=== PATIENT | male | born 1935 | race Caucasian/White ===

== ENCOUNTER 2021-01-11 22:18 | Emergency (ER) | payer OTHER ==
[~2021-01-11] VITALS: Ht 167.6 cm; Wt 72.6 kg
[2021-01-11 22:22] VITALS: BP_SYST 139
[2021-01-11] MEDS ORDERED: ceFAZolin SODIUM 1 GM VIAL IM ONE (22:30)
[2021-01-11] MEDS ORDERED: ONDANSETRON 4 MG ODT TAB PO ONE (22:30)
[2021-01-11] MEDS ORDERED: MORPHINE 4 MG INJ. 4 MG/ML VIAL IM ONE (22:30)
[2021-01-11] MEDS ORDERED: DIPH-TET-PERTUS Vaccine 0.5 ML VIAL (ADACEL) I.M. ONE (22:30)
[2021-01-11] MEDS ORDERED: MORPHINE 4 MG INJ. 4 MG/ML VIAL ONE (22:34)
[2021-01-11] MEDS ORDERED: ONDANSETRON HCL 4 MG/2 ML VIAL ONE (22:34)
[2021-01-11] MEDS ORDERED: ceFAZolin SODIUM 1 GM VIAL ONE (22:36)
[2021-01-11] MEDS ORDERED: LIDOCAINE 1%, 20 ML MDV 0 ML ONE (22:37)
[2021-01-11] MEDS ORDERED: ceFAZolin SODIUM 1 GM in D5W 50 ML IV ONE (22:45)
[2021-01-11] MEDS ORDERED: MORPHINE 4 MG INJ. 4 MG/ML VIAL IVP ONE (22:45)
[2021-01-11] MEDS ORDERED: ONDANSETRON HCL 4 MG/2 ML VIAL IVP ONE (22:45)
[2021-01-11 23:29] VITALS: BP_SYST 139
== END 2021-01-11 23:28 | disposition short-term general hospital (02) ==
LOC: SED 22:18
DX: S82.831A Other fracture of upper and lower end of right fibula, initial encounter for closed fracture (principal); S82.251B Displaced comminuted fracture of shaft of right tibia, initial encounter for open fracture type I or II; Z20.822 Contact with and (suspected) exposure to COVID-19; W01.0XXA Fall on same level from slipping, tripping and stumbling without subsequent striking against object, initial encounter; Y93.89 Activity, other specified; Y92.89 Other specified places as the place of occurrence of the external cause; Y99.8 Other external cause status
CPT/HCPCS: 29515; 36415; 73600; 87426; 90471; 90715; 96365; 96375; 99285; J0690; J2270; J2405; J2001